=== PATIENT | female | born 1935 | race Caucasian/White ===

== ENCOUNTER → 2017-11-02 | Day surgery (SDC) | payer OTHER ==
[~2017-11-02] VITALS: Ht 160 cm; Wt 60.3 kg
[~2017-11-02] MED LIST: APAP650 PO; CALCIUM 600 +1 EAC1 PO; FISH OIL 1,001000 M2 PO; FLONASE 0.05%50 MCG NASAL; GLUCOSAMINE HC500 MG PO; MAGOX 400400 MG PO; MULTIVITAMINS1 EAC7 PO; PROBIOTIC1 EAC1 PO; PROLIA60 MG/1 ML SUBQ; SYNTHROID88 MCG PO; VITAMIN B-12500 MC5 PO; VITAMIN B-12500 MCG PO; VITAMINC500 PO
--- NOTE | ~2017-11-02 | O ---
[facility] [place] [address] OPERATIVE REPORT Name: SCOTT ESPINAL Room #: 150-14 [facility]..#: [id number] Admission: 11/02/17 Attend Phys: Aashish Rand MD Discharge: Date of : 31 Report #: [id number] THIS REPORT FOR: //name// CC: Jt Rand SURGEON: Aashish Rand MD TAILOR'S AIDE: None. PREOPERATIVE DIAGNOSIS: Bilateral lower lid ectropion. POSTOPERATIVE DIAGNOSIS: Bilateral lower lid ectropion. OPERATION PERFORMED: Bilateral lower lid ectropion repair. ANESTHESIA: Local with IV sedation. COMPLICATIONS: None. INDICATIONS FOR PROCEDURE: This patient has bilateral acquired lower lid ectropion with chronic tearing and discharge. The current procedures are undertaken in order to improve the patient's visual function, lacrimal outflow, and level of comfort. Informed consent was obtained to include but not limit to the risk of loss of vision, bleeding, infection, scarring, failure to improve the problem and need for further surgery. DESCRIPTION OF OPERATION: The patient was taken to the operating room where 2% Xylocaine with epinephrine mixed with equal parts of 0.75% Marcaine with Wydase was administered transcutaneously and transconjunctivally to each lower lid and lateral canthal area. The patient was then prepped and draped in the usual sterile fashion. A Ashanti clamp was then used to clamp the left lateral canthus following which a sharp canthotomy and cantholysis were performed. The tarsal strip was prepared laterally, removing the lash bearing portion of the redundant lid margin and the redundant tarsal plate. Hemostasis was achieved with a monopolar cautery, as it was throughout the case. The tarsal strip was then secured to the internal portion of the lateral orbital tubercle with two interrupted 5-0 Prolene sutures. The lateral canthal angle was sharply reformed as the subcutaneous structures and the skin were closed with multiple interrupted 6-0 plain gut sutures. Attention was then turned to the right side where the same procedure was performed. The wounds were cleaned and dressed with ophthalmic antibiotic ointment. The patient was then transported to the recovery area, having [address] [address] OPERATIVE REPORT Name: SCOTT ESPINAL Room #: 150-14 [facility]#: [id number] Admission: 11/02/17 Attend Phys: Aashish Rand MD Discharge: Date of : 31 Report #: [id number] tolerated the procedure well with no anesthetic or operative complications being noted. By: 1445 1455 Aashish Rand MD /nt
[2017-11-02 13:45] VITALS: BP 120/88
== END | disposition home or self-care (01) ==
LOC: OR 05:38 → TBA 05:38 → OR 11-02 09:01
DX: H02.105 Unspecified ectropion of left lower eyelid (principal); H02.102 Unspecified ectropion of right lower eyelid; E03.9 Hypothyroidism, unspecified; Z87.891 Personal history of nicotine dependence; Z98.890 Other specified postprocedural states; Z98.41 Cataract extraction status, right eye; Z98.42 Cataract extraction status, left eye; Z88.0 Allergy status to penicillin; Z88.6 Allergy status to analgesic agent
CPT/HCPCS: 50010; 50101; 50386; 50398; 51636; 56527; 56531; 62110; 62850; 70005

== ENCOUNTER 2017-11-30 06:01 | Day surgery (SDC) | payer OTHER ==
[~2017-11-30] VITALS: Ht 160 cm; Wt 59.9 kg
--- NOTE | ~2017-11-30 | O ---
[facility] [place] [address] OPERATIVE REPORT Name: SCOTT ESPINAL Room #: DEP [facility]..#: [id number] Admission: 11/30/17 Attend Phys: Aashish Rand MD Discharge: 11/30/17 Date of : 31 Report #: [id number] THIS REPORT FOR: //name// CC: Jt Rand DATE OF SERVICE: 11/30/2017 PREOPERATIVE DIAGNOSIS: Bilateral upper lid ptosis with superior visual field defects both eyes. POSTOPERATIVE DIAGNOSIS: Bilateral upper lid ptosis with superior visual field defects both eyes. OPERATION PERFORMED: Bilateral upper lid functional ptosis repair. [employer] MINER: None. ANESTHESIA: Local with IV sedation. COMPLICATIONS: None. INDICATIONS FOR PROCEDURE: This patient has bilateral upper lid ptosis with superior visual field loss both eyes. Visual field testing demonstrates dense superior visual defects. Retesting with the upper lid elevated shows an improvement in visual field loss of over 30% and in excess of 12 degrees. The current procedure is being undertaken in order to improve the patient's visual function. Informed consent was obtained to include but not limited to the risk of loss of vision, bleeding, infection, scarring, failure to improve the problem and need for further surgery, such as adjustment of lid height. DESCRIPTION OF PROCEDURE: The patient was taken to the operating room, where 2% Xylocaine with epinephrine mixed with equal parts of 0.75% Marcaine with Wydase was administered transcutaneously to each upper lid. The patient was then prepped and draped in the usual sterile fashion. An upper lid crease incision was then made bilaterally and the dissection was carried down until the orbital septum was identified. The orbital septum was then cleared and the preaponeurotic fat identified. The levator aponeurosis was then disinserted from the anterior surface of the tarsal plate and dissected free in the avascular Lyn's muscle plane. The aponeurosis was then advanced and reattached to the anterior surface of the tarsal plate with interrupted [facility] [address] [place] [address] OPERATIVE REPORT Name: SCOTT ESPINAL Room #: [facility] M..#: [id number] Admission: 11/30/17 Attend Phys: Aashish Rand MD Discharge: 11/30/17 Date of : 31 Report #: [id number] mattress 6-0 Novafil sutures on each side, adjusting for height and contour. The redundant aponeurosis was then amputated. The incision was then closed with multiple interrupted 6-0 chromic sutures that were used to recreate an upper lid crease. The skin was closed with a running 6-0 plain gut suture. The wound was then cleaned and dressed with ophthalmic antibiotic ointment followed by a Telfa pad. The patient was transported to the recovery area, having tolerated the procedure well with no anesthesia or operative complications being noted. <ELECTRONICALLY SIGNED> By: Aashish Rand MD 12/07/17 0625 1459 1518 Aashish Rand MD /naif
[2017-11-30 06:30] VITALS: BP 130/80; BP 165/68
[2017-11-30 12:30] VITALS: BP 165/68
== END 2017-11-30 16:18 | disposition home or self-care (01) ==
LOC: OR 06:01 → TBA 06:02 → OR 08:15
DX: H02.403 Unspecified ptosis of bilateral eyelids (principal); H53.462 Homonymous bilateral field defects, left side; H53.461 Homonymous bilateral field defects, right side; E03.9 Hypothyroidism, unspecified; Z87.891 Personal history of nicotine dependence; Z98.890 Other specified postprocedural states; Z98.41 Cataract extraction status, right eye; Z98.42 Cataract extraction status, left eye; Z88.0 Allergy status to penicillin; Z88.6 Allergy status to analgesic agent; Z79.899 Other long term (current) drug therapy
CPT/HCPCS: 50010; 50101; 50386; 50398; 51636; 56528; 56531; 62110; 62850; 70005

== ENCOUNTER → 2019-02-22 | Outpatient (CLI) | payer OTHER | LOC: CAT 09:46 | DX: Z13.6 Encounter for screening for cardiovascular disorders (principal); E78.00 Pure hypercholesterolemia, unspecified; I25.10 Atherosclerotic heart disease of native coronary artery without angina pectoris ==

== ENCOUNTER 2020-01-26 09:41 | Emergency (ER) | payer OTHER ==
[~2020-01-26] VITALS: Ht 160 cm; Wt 57.6 kg
[2020-01-26 10:17] LABS: HEMATOCRIT 37.2 % (37.0-47.0); HEMOGLOBIN 12.3 gm/dL (12.0-15.0); MCH 30.9 pg (26.0-34.0); MCV 93.6 fL (80.0-100.0); RBC 3.97 mil/uL (4.20-5.00); RDW 13.6 % (10.5-14.5); WBC 3.9 thou/uL (4.0-11.0)
[2020-01-26 10:26] LABS: ANION GAP 5 mmol/L (7-16); BUN 13 mg/dL (7-18); CALCIUM 9.6 mg/dL (8.5-10.1); CHLORIDE 97 mmol/L (98-107); CO2 29 mmol/L (21-32); CREATININE 0.7 mg/dL (0.6-1.0); GLUCOSE 98 mg/dL (74-106); POTASSIUM 4.5 mmol/L (3.5-5.1); SODIUM 131 mmol/L (136-145)
[2020-01-26 10:34] LABS: TROPONIN-I <0.06 ng/mL (<0.06)
[2020-01-26 11:53] LABS: URINE BILIRUBIN NEGATIVE (Negative); URINE BLOOD NEGATIVE (Negative); URINE CLARITY CLEAR; URINE COLOR YELLOW; URINE GLUCOSE-RANDOM* NEGATIVE (Negative); URINE KETONES TRACE (Negative); URINE LEUKOCYTES-REFLEX NEGATIVE (Negative); URINE NITRITE-REFLEX NEGATIVE (Negative); URINE PROTEIN (DIPSTICK) NEGATIVE (Negative); URINE SPECIFIC GRAVITY 1.015 (1.005-1.035); URINE UROBILINOGEN 0.2 E.U./dl (0.2-1.0)
[2020-01-26 12:39] VITALS: BP 119/76
--- NOTE | 2020-01-26 16:18 | EKG ---
[facility] [place] [address] ELECTROCARDIOGRAM REPORT Name: SCOTT ESPINAL [id number] Admission: 01/26/20 Attend Phys: Discharge: 01/26/20 Date of : 31 Report #: [id number] THIS REPORT FOR: cc: Jt Dominguez David J. DO Couchonnal, Luis F. 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
== END 2020-01-26 12:40 | disposition home or self-care (01) ==
LOC: ER 09:41
PROVIDERS: Emergency Medicine
DX: S30.0XXA Contusion of lower back and pelvis, initial encounter (principal); R55 Syncope and collapse; E03.9 Hypothyroidism, unspecified; Z88.0 Allergy status to penicillin; Z88.6 Allergy status to analgesic agent; W18.39XA Other fall on same level, initial encounter; Y93.89 Activity, other specified; Y92.038 Other place in apartment as the place of occurrence of the external cause; Y99.8 Other external cause status

== ENCOUNTER → 2020-01-30 | Outpatient (CLI) | payer OTHER | LOC: SJCVC 15:02 | DX: I45.10 Unspecified right bundle-branch block (principal); I10 Essential (primary) hypertension; E78.5 Hyperlipidemia, unspecified; E03.9 Hypothyroidism, unspecified; Z79.899 Other long term (current) drug therapy; Z87.891 Personal history of nicotine dependence ==

== ENCOUNTER → 2020-02-01 | Outpatient (CLI) | payer OTHER | LOC: SJCVCIMAG 09:22 | DX: I65.23 Occlusion and stenosis of bilateral carotid arteries (principal); I08.8 Other rheumatic multiple valve diseases ==

== ENCOUNTER → 2020-03-12 | Outpatient (CLI) | payer OTHER | LOC: SJCVC 13:15 | DX: I45.19 Other right bundle-branch block (principal); I10 Essential (primary) hypertension; I65.23 Occlusion and stenosis of bilateral carotid arteries ==